=== PATIENT | female | born 1945 | race Caucasian/White ===

== ENCOUNTER 2017-01-08 06:50 | Day surgery (SDC) | payer MEDICARE, BC ==
[~2017-01-08 06:50] MED LIST: Lactated Ringers 1,000 ML IV SCH; Sodium Chloride 0.9% 10 ML Syringe FLUSH PRN
[2017-01-08] MEDS ORDERED: Ondansetron 4 MG/2 ML SDV IVPUSH ONE (08:00)
[2017-01-08] MEDS ORDERED: Propofol 200 MG/20 ML SDV IV ONE (08:00)
--- NOTE | 2017-01-08 08:39 | PCM.OPNOTE ---
- General Post-Op/Procedure Note Date of Surgery/Procedure: 01/08/17 Operative Procedure(s): c scope Findings: diverticulosis Pre Op Diagnosis: screening Post-Op Diagnosis: diverticulosis Anesthesia Technique: MAC Primary Surgeon: Malik Flores Anesthesia Provider: Matt Vasquez Pathology: none Complications: None Condition: Good Free Text/Narrative:: see dictation
[2017-01-08 09:45] VITALS: BP 138/81
--- NOTE | 2017-01-08 10:27 | OR ---
DATE OF OPERATION: 01/08/2017 SURGEON: Malik Flores MD PROCEDURE PERFORMED: Colonoscopy. PREOPERATIVE DIAGNOSIS: Screening colonoscopy. POSTOPERATIVE DIAGNOSIS: Diverticulosis. INDICATIONS FOR PROCEDURE: This is a 71-year-old white female, who presents for her 1st screening colonoscopy. She is without complaints. Colonoscopy was offered and accepted. DESCRIPTION OF PROCEDURE: After an excellent IV sedation was administered, digital rectal exam was performed. No marked abnormality was noted. The flexible colonoscope was inserted and advanced without difficulty to the cecum. The prep was excellent. The following findings were noted. Ascending colon, unremarkable. Transverse colon, occasional diverticula. Descending colon, occasional diverticula. Sigmoid, mild diverticulosis. Rectum and anus unremarkable. Colon was deflated. Scope was removed. The patient tolerated the procedure well and was taken to recovery room in good condition. /[id number] OLMAN/AMIRAH
--- NOTE | 2017-01-08 14:57 | HP ---
ADMISSION DATE: 01/08/2017 CHIEF COMPLAINT: Need for screening colonoscopy. HISTORY OF PRESENT ILLNESS: This is a 71-year-old white female, who presents for colonoscopy. She is without complaints. She has never had one. She has a negative family history. MEDICATIONS: 1. Levothyroxine 137 mcg per day. 2. K-Tab 10 mEq one time per day. 3. Lopressor 50 mg once a day. 4. Lasix 40 mg once a day. 5. Lipitor 40 mg once a day. 6. Kenalog cream as needed. 7. Norma 60 mg daily. 8. Allopurinol 300 mg daily. 9. Prozac 20 mg daily. 10.Temovate solution p.r.n. 11.Vasotec 20 mg half a tablet once per day. 12.Aspirin 81 mg a day. 13.Tylenol 2 tablets as needed at bedtime. 14.Albuterol inhaler two puffs q.4 hours as needed. 15.Testosterone powder. 16.Betamethasone dipropionate cream. Applied daily for up to two weeks. 17.Restasis 0.05% one drop in each eye daily. 18.Indocin 50 mg as needed for pain. 19.Calcium calciferol one tablet by mouth daily. ALLERGIES: She has allergies to codeine, Demerol, and morphine which all cause nausea. PAST MEDICAL HISTORY: Significant for apnea, history of infiltrating ductal carcinoma of the right breast, degenerative joint disease, hyperlipidemia, hypertension, rosacea, and hypothyroidism. PAST SURGICAL HISTORY: Significant for left and right knee arthroscopy, liver biopsy, carpal tunnel release, cataract extraction, hernia repair, bilateral TKAs, bilateral total hip diagnostic laparoscopy, modified radical mastectomy, exploratory laparotomy with oophorectomy, shoulder arthroplasty, tonsils and adenoidectomy, and total hip. FAMILY HISTORY: Significant for osteoarthritis and heart disease. SOCIAL HISTORY: The patient is with 2 children. She is a retired nurse, is a former smoker, and has an occasional drink. REVIEW OF SYSTEMS: Significant only for visual disturbance, back pain, and environmental allergies. PHYSICAL EXAMINATION: GENERAL: This is a well-developed, well-nourished, white female appearing in no acute distress. HEENT: Grossly within normal limits. LUNGS: Clear to auscultation. HEART: Regular rate and rhythm. ABDOMEN: Soft and nontender. ASSESSMENT: Need for screening colonoscopy. PLAN: C-scope. Procedure and risks were explained to the patient, to include bleeding, infection, and perforation. She expresses understanding, and she asked us to proceed. /[id number] OLMAN/AMIRAH SHARP
== END 2017-01-08 10:04 | disposition home or self-care (01) ==
LOC: FB.SDS 06:50
PROVIDERS: ATTEND Surgery
DX: Z12.11 Encounter for screening for malignant neoplasm of colon (principal); K57.30 Diverticulosis of large intestine without perforation or abscess without bleeding; E78.5 Hyperlipidemia, unspecified; I10 Essential (primary) hypertension; E03.9 Hypothyroidism, unspecified; G47.30 Sleep apnea, unspecified; Z88.8 Allergy status to other drugs, medicaments and biological substances; Z79.82 Long term (current) use of aspirin; Z79.899 Other long term (current) drug therapy; Z98.890 Other specified postprocedural states; Z87.891 Personal history of nicotine dependence
CPT/HCPCS: 00810; G0105; J7120; J2405; J2704

== ENCOUNTER 2024-12-02 16:31 | Emergency (ER) | payer MEDICARE, OTHER ==
[2024-12-02] MEDS ORDERED: Ondansetron 4 MG Tab.DIS PO ONE (16:32)
[2024-12-02] MEDS: Ondansetron 4 MG/2 ML SDV IVPUSH ONE ×2 (17:20→19:05)
[2024-12-02] MEDS: Sodium Chloride 0.9% 1,000 ML IV ONE ×2 (17:20→19:04)
[2024-12-02 17:26] LABS: HEMATOCRIT 36.8 % (34.2-48.2); HEMOGLOBIN 12.4 g/dL (11.4-15.5); MEAN CORPUSCULAR HEMOGLOBIN 29.2 pg (23.9-33.9); MEAN CORPUSCULAR HGB CONC 33.7 g/dL (31.9-34.8); MEAN CORPUSCULAR VOLUME 86.6 fL (76.7-100.5); MEAN PLATELET VOLUME 7.5 fL (7.1-12.4); PLATELET COUNT,PLT 177 x10(3)uL (151-488); RED BLOOD CELL COUNT 4.25 x10(6)uL (3.60-5.20); RED CELL DISTRIBUTION WIDTH 14.1 % (12.3-16.5); WHITE BLOOD CELL COUNT,WBC 7.5 x10-3/uL (3.0-10.3)
[2024-12-02 17:28] LABS: BLOOD UREA NITROGEN,BUN 20 mg/dL (7-18); CALCIUM 9.3 mg/dL (8.6-10.2); CARBON DIOXIDE,CO2 29 mmol/L (21-32); CHLORIDE,CL 99 mmol/L (100-110); CREATININE 0.8 mg/dL (0.55-1.02); EST CRCL DRUG DOSING (CG) 41.62 mL/min; ESTIMATED GFR 74 mL/min (>60); GLUCOSE RANDOM 140 mg/dL (80-116); POTASSIUM,K 3.7 mmol/L (3.5-5.3); SODIUM,NA 136 mmol/L (135-145)
[2024-12-02 17:36] LABS: ALANINE AMINOTRANSFERASE,ALT 30 U/L (12-36); ALBUMIN 3.5 g/dL (3.2-4.6); ALKALINE PHOSPHATASE 109 IU/L (56-112); ASPARTATE AMNIOTRANSFERASE,AST 30 IU/L (5-25); PROTEIN TOTAL,TP 6.9 g/dL (6.0-8.0); TROPONIN I 59.3 pg/mL (4.0-60.3)
[2024-12-02 17:45] LABS: LYMPHOCYTES PERCENT MAN 7 % (13-37); MONOCYTES PERCENT MAN 10 % (4-12); SEG NEUTROPHILS PERCENT MAN 83 % (46-82)
[2024-12-02 18:32] LABS: BILIRUBIN,URINE NEGATIVE (NEGATIVE); GLUCOSE,URINE NORMAL (NORMAL); KETONES,URINE 15 mg/dL (NEGATIVE); LEUKOCYTE ESTERASE,URINE LARGE (NEGATIVE); NITRITE,URINE NEGATIVE (NEGATIVE); OCCULT BLOOD,URINE MODERATE (NEGATIVE); PROTEIN,URINE TRACE mg/dL (NEGATIVE); UROBILINOGEN,URINE NORMAL (NEGATIVE)
[2024-12-02 18:34] LABS: APPEARANCE,URINE SLIGHTLY CLOUDY (CLEAR); BACTERIA,URINE MODERATE (NS); COLOR,URINE YELLOW (YELLOW); SQUAMOUS EPITHELIAL CELLS,UR FEW (NS,R,O)
[2024-12-02] MEDS: cefTRIAXone 1 GM Vial IVPUSH ONE (18:47)
[2024-12-02 20:00] VITALS: BP 143/70; PULSE 69
== END 2024-12-02 20:20 | disposition home or self-care (01) ==
LOC: FB.ED 16:31
DX: N39.0 Urinary tract infection, site not specified (principal); I10 Essential (primary) hypertension; E78.00 Pure hypercholesterolemia, unspecified; E03.9 Hypothyroidism, unspecified; E66.9 Obesity, unspecified; Z88.5 Allergy status to narcotic agent; Z88.8 Allergy status to other drugs, medicaments and biological substances; Z79.82 Long term (current) use of aspirin; Z79.899 Other long term (current) drug therapy; Z68.35 Body mass index [BMI] 35.0-35.9, adult
CPT/HCPCS: 36415; 80053; 81001; 83605; 83690; 84484; 85025; 87086; 87088; 87186; 93005; 96361; 96374; 96375; 96376; 99284; J0696; J2405; J7030; Q0162